=== PATIENT | male | born 1945 | race Caucasian/White ===

== ENCOUNTER 2018-09-15 01:08 | Outpatient (CLI) | payer MEDICARE, SELFPAY ==
[2018-09-15 08:34] LABS: BUN 20 mg/dL (7-18); CREATININE 1.43 mg/dL (0.70-1.30); Calcium 8.9 mg/dL (8.5-10.1); Chloride 103 mmol/L (98-107); Estimated GFR 48.34 (mL/min/1.73m2); Glucose 126 mg/dL (70-100); Potassium 4.7 mmol/L (3.5-5.1); Sodium 141 mmol/L (136-145)
--- NOTE | 2018-09-15 08:39 | DI.US_ITS ---
SYMPTOM/DIAGNOSIS: MILD RENAL INSUFFICIENCY, N28.9 RENAL ULTRASOUND: Routine examination. The right kidney measures 10.4 cm. long. There is mild renal cortical thinning. No solid renal mass is present. There are renal cysts seen. The largest is in the mid pole and measures 3.1 by 2.7 by 3.9 cm. No hydronephrosis or nephrolithiasis is present. There is blood flow seen to the right kidney. The left kidney measures 11.7 cm. long. No renal mass, calculus or obstruction is seen. There is a 1.3 by 1.1 cm. cyst in the left kidney. Normal blood flow is seen to the left kidney. The prevoid urinary bladder volume is 174 cc's. The bladder wall appeared smooth. No intraluminal masses are present. Both ureteral jets were visualized. The post void urinary bladder volume was 13 cc's. Prostatic volume is measured at 40 cc's. IMPRESSION: 1. Mild renal cortical thinning. 2. Bilateral renal cysts.
== END 2018-09-15 01:28 ==
PROVIDERS: PCP Family Medicine; Visit Provider Family Medicine
DX: N28.1 Cyst of kidney, acquired (principal); N28.9 Disorder of kidney and ureter, unspecified
CPT/HCPCS: 36415; 76770; 80048

== ENCOUNTER 2019-09-15 01:41 | Outpatient (CLI) | payer MEDICARE, SELFPAY ==
[2019-09-15 12:56] LABS: Anion Gap 8.5 mmol/L (3-11); BUN 16 mg/dL (7-18); CO2 27.5 mmol/L (21.0-32.0); CREATININE 1.31 mg/dL (0.70-1.30); Calcium 8.6 mg/dL (8.5-10.1); Chloride 102 mmol/L (98-107); Estimated GFR 53.34 (mL/min/1.73m2); Glucose 102 mg/dL (74-106); Sodium 138 mmol/L (136-145)
== END 2019-09-15 02:01 ==
PROVIDERS: PCP Family Medicine; Visit Provider Family Medicine
DX: I10 Essential (primary) hypertension (principal)
CPT/HCPCS: 36415; 80048

== ENCOUNTER 2020-03-16 10:02 | Day surgery (SDC) | payer MEDICARE, SELFPAY ==
[2020-03-16 10:25] VITALS: BP 137/76; PULSE 72; RESP 18; TEMP 37; O2SAT 97
[2020-03-16] MEDS: Tetracaine 0.5% 4 ML BTL OD (11:17)
[2020-03-16] MEDS: Lidocaine 2% Jelly 6 ML SYR (11:18)
[2020-03-16] MEDS: Balanced Salt Soln.-PLUS 500 ML BAG (11:26)
[2020-03-16] MEDS: Trypan Blue 0.06% 0.5 ML SYR (11:29)
[2020-03-16] MEDS: Lidocaine 1% Pres-Free 5 ML VIAL (11:29)
[2020-03-16 11:30] VITALS: BP 111/61; PULSE 78; RESP 16; TEMP 36.4; O2SAT 100
[2020-03-16] MEDS: Moxifloxacin-PF 1 MG/ML VIAL (11:30)
[2020-03-16] MEDS: Povidone-Iodine Ophth 30 ML BTL (11:31)
--- NOTE | 2020-03-16 11:54 | W.PM.DSUDISC ---
Discharge Plan Disposition Patient Disposition: HOME Condition: Good Discharge Details Attending Provider: Jose Reveles Primary Care Provider: Keagan Wilson Home Meds and New Rx's Prescriptions: No Action simvastatin 20 mg tablet 20 mg PO DAILY Qty: 90 RF: 4 aspirin [Adult Aspirin Regimen] 81 mg tablet,delayed release (DR/EC) 81 mg PO DAILY Qty: 90 RF: 4 nitroglycerin 0.4 MG tablet, sublingual 0.4 mg Sublingual PRN PRNQty: 10 RF: 4 hydrochlorothiazide 12.5 mg tablet 12.5 mg PO DAILY Qty: 90 RF: 3 lisinopril 5 mg tablet 5 mg PO DAILY Qty: 90 RF: 3 ibuprofen 200 mg Tablet 400 mg PO PRN PRNRF: 0 Discharge Instructions Stand Alone Forms: Post-op Topical Cataract, Jw Peña (DSU) Discharge Orders Discharge Orders: Discharge Order (Routine); Ordered 03/16/20 Ordered By: Jose Reveles DS: Diagnosis Discharge Diagnosis (1) Cortical cataract of right eye: Status: Resolved (2) Nuclear sclerotic cataract of right eye: Status: Resolved
--- NOTE | 2020-03-16 11:56 | ROE_ITS ---
Date of service: 03/16/20 Time of Service: 11:56 Operative Note Operative Note DATE OF PROCEDURE: 03/16/20 PRE-OP DIAGNOSIS: Nuclear/cortical cataract, right eye POST-OP DIAGNOSIS: same PROCEDURE: Cataract extraction using phacoemulsification with intraocular lens implantation, right eye, using capsular staining with Vision Blue SURGEON: Jose Reveles ANESTHESIA: MAC (with local sub-tenon's anesthetic injection) PATHOLOGY: none sent COMPLICATIONS: None Patient was transported to: same day Patient's condition: stable Implants: Alo and Alo / [employer] Tecnis [id number] Indications: Progressive visual loss due to cataract, right eye Procedure Description: CATARACT SURGERY OPERATIVE REPORT PREOPERATIVE DIAGNOSIS: 1. Nuclear/cortical cataract, right eye 2. Poor red reflex secondary to #1 POSTOPERATIVE DIAGNOSIS: Same OPERATION: 1. Cataract extraction using phacoemulsification with posterior chamber intraocular lens implant, right eye. 2. Capsular staining with Vision Blue IOL: IOL Employee Relations Specialist/Model: Alo & Alo / DANNY Tecnis [id number] IOL Power: + 20.50 diopters IOL Serial Number: [id number] Optic Diameter: 6.0mm Haptic/Overall Diameter: 13.0mm PHACO INFO: Eamon Phytelurion Vision System with OZil and Active Fluidics Cumulative Dispersed Energy (CDE): 19.50 seconds SURGEON: Jose Reveles MD, [place] ANESTHESIA: Monitored Anesthesia Care (MAC), with local sub-tenon's anesthetic infiltration COMPLICATIONS: None SPECIMENS: None INDICATIONS FOR PROCEDURE: The patient is a 74-year-old gentleman with history of diminished visual acuity in his right eye. He is noted to have a dense nuclear cataract with cortical cataract of the right eye. The option of cataract surgery was offered to the patient and he wished to proceed. PROCEDURE: The correct surgical eye was identified and marked as the right eye and the pupil was dilated in the preoperative area using mydriatics and cycloplegics. The dilated pupil size was 5.5 mm. Oral sedation was administered in the form of an Imprimis MKO Melt (midazolam 3mg/ketamine 25mg/ondansetron 2mg). The patient was brought to the operating room where cardiopulmonary monitoring was instituted and surgical time-out was performed, confirming the correct operative eye and IOL power. Topical anesthesia was administered and ophthalmic povidone-iodine 5% was instilled into the conjunctival fornices. Lidocaine gel was applied to the cornea and the brigid-ocular area was prepped with Betadine 10% solution and draped in the usual sterile fashion for intraocular surgery, including an aperture drape. A Tegaderm transparent film dressing was cut in half and used to cover the lashes and lid margins. Care was taken to sequester the lashes and lid margins under the Tegaderm dressing. A lid speculum was placed between the lids of the operative eye and the [place] operating microscope was maneuvered into position. Callie scissors were then used to make a conjunctival buttonhole approximately 6mm posterior to the limbus in the inferonasal quadrant. Blunt dissection was carried out to expose bare sclera, and a blunt-tipped sub-tenon?s anesthesia cannula was introduced and passed posteriorly along the globe where non- preserved plain lidocaine was injected into posterior sub-Tenon?s space. A sideport knife was used to make a paracentesis port inferotemporally. Intraocular phenylephrine/lidocaine was injected into the anterior chamber. Air was injected into the anterior chamber, followed by Vision Blue, which was painted over the anterior capsule and then irrigated out with BSS. The anterior chamber was filled with Healon Pro. A 2.4mm keratome knife was used to create a half-thickness groove at the limbus and then to construct a three-plane near- clear corneal tunnel extending 2.0mm into clear cornea at the 10:00 position. A flap was raised on the anterior capsule and capsulorhexis forceps were used to complete a continuous curvilinear capsulorhexis of 5.0 mm. Balanced salt solution was then used to perform cortical cleaving hydrodissection and nuclear hydrodelineation until the lens could be freely rotated within the capsular bag. The lens nucleus was then disassembled and removed within the capsular bag and iris plane using phacoemulsification. Residual cortical material was removed using the I/A handpiece. The posterior capsule was carefully polished to remove as much residual lens epithelial cells as safely possible. The capsular bag was then inflated and the anterior chamber deepened with viscoelastic. The lens implant described above was inserted into the capsular bag using the DANNY [place] Injector. A Kuglen hook was used to dial the IOL into position. Residual viscoelastic was then removed first from posterior to the IOL, then from the anterior chamber using the I/A handpiece. The lens implant was noted to center nicely within the capsular bag. The incisions were stromally hydrated, and the anterior chamber was reformed using BSS. Then 0.5cc of moxifloxacin 1.0mg/ml were injected into the capsular bag and anterior chamber. The incisions were checked with a Weck spear and found to be secure. Several drops of ophthalmic povidone-iodine 5% were then applied to the eye followed by two drops of Imprimis combination prednisolone/moxifloxacin/nepafenac solution. The drapes were removed and a clear plastic protective eye shield was placed over the eye. The patient was then returned to Same Day Surgery in stable condition.
== END 2020-03-16 12:13 | disposition home or self-care (01) ==
PROVIDERS: PCP Family Medicine; Visit Provider Ophthalmology
PROC: (CPT 66982; principal; 2020-03-16 11:45)
DX: H25.011 Cortical age-related cataract, right eye (principal); H25.11 Age-related nuclear cataract, right eye; H35.89 Other specified retinal disorders
CPT/HCPCS: 66982; V2632

== ENCOUNTER 2020-03-30 08:21 | Day surgery (SDC) | payer MEDICARE, SELFPAY ==
[2020-03-30 08:41] VITALS: BP 147/77; PULSE 74; RESP 16; TEMP 36.5; O2SAT 97
[2020-03-30] MEDS: Balanced Salt Soln.-PLUS 500 ML BAG (10:02)
[2020-03-30] MEDS: Trypan Blue 0.06% 0.5 ML SYR (10:03)
[2020-03-30] MEDS: Lidocaine 1% Pres-Free 5 ML VIAL (10:03)
[2020-03-30] MEDS: Tetracaine 0.5% 4 ML BTL OS (10:03)
[2020-03-30] MEDS: Lidocaine 2% Jelly 6 ML SYR (10:04)
[2020-03-30] MEDS: Povidone-Iodine Ophth 30 ML BTL ×2 (10:04→10:22)
[2020-03-30] MEDS: Moxifloxacin-PF 1 MG/ML VIAL (10:13)
--- NOTE | 2020-03-30 10:33 | W.PM.DSUDISC ---
Discharge Plan Discharge Details Attending Provider: Jose Reveles Primary Care Provider: Keagan Wilson Home Meds and New Rx's Prescriptions: No Action simvastatin 20 mg tablet 20 mg PO DAILY Qty: 90 RF: 4 aspirin [Adult Aspirin Regimen] 81 mg tablet,delayed release (DR/EC) 81 mg PO DAILY Qty: 90 RF: 4 nitroglycerin 0.4 MG tablet, sublingual 0.4 mg Sublingual PRN PRNQty: 10 RF: 4 hydrochlorothiazide 12.5 mg tablet 12.5 mg PO DAILY Qty: 90 RF: 3 lisinopril 5 mg tablet 5 mg PO DAILY Qty: 90 RF: 3 ibuprofen 200 mg Tablet 400 mg PO PRN PRNRF: 0 Discharge Instructions Stand Alone Forms: Post-op Topical CataractJw (DSU) DS: Diagnosis Discharge Diagnosis (1) Cortical cataract of left eye: Status: Resolved (2) Nuclear sclerotic cataract of left eye: Status: Suspected
--- NOTE | 2020-03-30 10:34 | ROE_ITS ---
Date of service: 03/30/20 Time of Service: 10:34 Operative Note Operative Note DATE OF PROCEDURE: 03/30/20 POST-OP DIAGNOSIS: same PROCEDURE: Cataract extraction using phacoemulsification with intraocular lens implant, left eye, using capsular staining with Vision Blue SURGEON: Jose Reveles ANESTHESIA: MAC (with local sub-tenon's anesthetic injection) COMPLICATIONS: None Patient was transported to: same day Patient's condition: stable Implants: Alo and Alo / [employer] Tecnis [id number] Indications: Progressive decreased vision due to cataract, left eye, with poor red reflex Procedure Description: CATARACT SURGERY OPERATIVE REPORT PREOPERATIVE DIAGNOSIS: 1. Dense nuclear/cortical cataract, left eye 2. Poor red reflex secondary to #1 POSTOPERATIVE DIAGNOSIS: Same OPERATION: 1. Cataract extraction using phacoemulsification with posterior chamber intraocular lens implant, left eye. 2. Capsular staining with Vision Blue IOL: IOL [employer] Core Feeder/Model: Alo & Alo / DANNY Tecnis [id number] IOL Power: + 19.50 diopters IOL Serial Number: [id number] Optic Diameter: 6.0 mm Haptic/Overall Diameter: 13.0 mm PHACO INFO: Eamon [employer] Vision System with OZil and Active Fluidics Cumulative Dispersed Energy (CDE): 21.33 seconds SURGEON: Jose Reveles MD, [place] ANESTHESIA: [facility] ([facility]), with local sub-tenon's anesthetic infiltration COMPLICATIONS: None SPECIMENS: None INDICATIONS FOR PROCEDURE: Patient is a 74-year-old gentleman with history of diminished visual acuity in both eyes secondary to the development of dense bilateral nuclear and cortical cataract. He has already undergone cataract surgery in his right eye and is doing well postoperatively. He now presents for cataract surgery in the left eye. PROCEDURE: The correct surgical eye was identified and marked as the left eye and the pupil was dilated in the preoperative area using mydriatics and cycloplegics. The dilated pupil size was 6.5 mm. Oral sedation was administered in the form of an Imprimis MKO Melt (midazolam 3mg/ketamine 25mg/ondansetron 2mg). The patient was brought to the operating room where cardiopulmonary monitoring was instituted and surgical time-out was performed, confirming the correct operative eye and IOL power. Topical anesthesia was administered and ophthalmic povidone-iodine 5% was instilled into the conjunctival fornices. Lidocaine gel was applied to the cornea and the brigid-ocular area was prepped with Betadine 10% solution and draped in the usual sterile fashion for intraocular surgery, including an aperture drape. A Tegaderm transparent film dressing was cut in half and used to cover the lashes and lid margins. Care was taken to sequester the lashes and lid margins under the Tegaderm dressing. A lid speculum was placed between the lids of the operative eye and the [place] operating microscope was man euvered into position. Callie scissors were then used to make a conjunctival buttonhole approximately 6mm posterior to the limbus in the inferonasal quadrant. Blunt dissection was carried out to expose bare sclera, and a blunt-tipped sub-tenon?s anesthesia cannula was introduced and passed posteriorly along the globe where non- preserved plain lidocaine was injected into posterior sub-Tenon?s space. A sideport knife was used to make a paracentesis port superiorly/superiortemporally. Intraocular phenylephrine/lidocaine was injected int the anterior chamber.. Air was then injected into the anterior chamber, followed by Vision Blue, which was painted over the anterior capsule and then irrigated out using BSS. The anterior chamber was filled with Healon Pro. A 2.4mm keratome knife was used to create a half-thickness groove at the limbus and then to construct a three-plane near-clear corneal tunnel extending 2.0mm into clear cornea at the 3:00 position. A flap was raised on the anterior capsule and capsulorhexis forceps were used to complete a continuous curvilinear capsulorhexis of 5.0 mm. Balanced salt solution was then used to perform cortical cleaving hydrodissection and nuclear hydrodelineation until the lens could be freely rotated within the capsular bag. The lens nucleus was then disassembled and removed within the capsular bag and iris plane using phacoemulsification. Residual cortical material was removed using the 45-degree angled silicone I/A tip with 0.3mm port. The posterior capsule was carefully polished to remove as much residual lens epithelial cells as safely possible. The capsular bag was then inflated and the anterior chamber deepened with viscoelastic. The lens implant described above was inserted into the capsular bag using the DANNY [place] Injector. A Kuglen hook was used to dial the IOL into position. Residual viscoelastic was then removed first from posterior to the IOL, then from the anterior chamber using the I/A handpiece. The lens implant was noted to center nicely within the capsular bag. The incisions were stromally hydrated, and the anterior chamber was reformed using BSS. Then 0.4cc of moxifloxacin 1.5mg/ml were injected into the capsular bag and anterior chamber. The incisions were checked with a Weck spear and found to be secure. Several drops of ophthalmic povidone-iodine 5% were then applied to the eye followed by two drops of Imprimis combination prednisolone/moxifloxacin/nepafenac solution. The drapes were removed and a clear plastic protective eye shield was placed over the eye. The patient was then returned to Same Day Surgery in stable condition.
== END 2020-03-30 10:50 | disposition home or self-care (01) ==
LOC: SUR 08:22
PROVIDERS: PCP Family Medicine; Visit Provider Ophthalmology
PROC: (CPT 66982; principal; 2020-03-30 10:30)
DX: H25.12 Age-related nuclear cataract, left eye (principal); H35.89 Other specified retinal disorders; Z98.41 Cataract extraction status, right eye; Z96.1 Presence of intraocular lens; G47.33 Obstructive sleep apnea (adult) (pediatric); I10 Essential (primary) hypertension
CPT/HCPCS: 66982; V2632

== ENCOUNTER 2020-07-05 05:34 | Outpatient (CLI) | payer MEDICARE, OTHER, SELFPAY ==
[2020-07-05 13:34] LABS: Anion Gap 6.2 mmol/L (3-11); BUN 18 mg/dL (7-18); CO2 29.8 mmol/L (21.0-32.0); CREATININE 1.25 mg/dL (0.70-1.30); Calcium 8.9 mg/dL (8.5-10.1); Calculated LDL 40 mg/dL (<100); Chloride 105 mmol/L (98-107); Cholesterol 100 mg/dL (<200); Estimated GFR 56.16 (mL/min/1.73m2); Glucose 96 mg/dL (74-106); HDL Cholesterol 51 mg/dL (40-60); Potassium 3.9 mmol/L (3.5-5.1); Sodium 141 mmol/L (136-145); Triglyceride 47 mg/dL (<150)
== END 2020-07-05 05:54 ==
PROVIDERS: PCP Family Medicine; Visit Provider Family Medicine
DX: I10 Essential (primary) hypertension (principal)
CPT/HCPCS: 36415; 80048; 80061

== ENCOUNTER 2021-03-19 18:19 | Outpatient (REF) | payer MEDICARE, OTHER, SELFPAY ==
[2021-03-20 11:36] LABS: Lyme Ab w Rflx to Lyme Confirm Negative (Negative)
[2021-03-22 13:34] LABS: Anaplasma phagocytophilum Negative (Negative); B. miyamotoi PCR Negative (Negative); Babesia divergens/MO-1 Negative (Negative); Babesia duncani Negative (Negative); Babesia microti Negative (Negative); Ehrlichia chaffeensis Negative (Negative); Ehrlichia ewingii/canis Negative (Negative); Ehrlichia muris eauclairensis Negative (Negative)
== END 2021-03-19 18:20 | disposition home or self-care (01) ==
LOC: LBN 18:19
PROVIDERS: PCP Family Medicine; Visit Provider Physician Assistant
DX: W57.XXXA Bitten or stung by nonvenomous insect and other nonvenomous arthropods, initial encounter (principal); T14.8XXA Other injury of unspecified body region, initial encounter
CPT/HCPCS: 87798; 86618

== ENCOUNTER 2021-07-03 09:41 | Outpatient (CLI) | payer MEDICARE, OTHER, SELFPAY ==
[2021-07-03 13:03] LABS: ALT 18 U/L (16-63); AST 16 U/L (15-37); Albumin 4.1 g/dL (3.4-5.0); Alkaline Phosphatase 74 U/L (46-116); Anion Gap 8.2 mmol/L (3-11); BUN 20 mg/dL (7-18); Bilirubin, Total 0.6 mg/dL (0.2-1.0); CO2 28.8 mmol/L (21.0-32.0); CREATININE 1.3 mg/dL (0.70-1.30); Calcium 8.8 mg/dL (8.5-10.1); Calculated LDL 44 mg/dL (<100); Chloride 104 mmol/L (98-107); Cholesterol 104 mg/dL (<200); Estimated GFR 53.53 (mL/min/1.73m2); Glucose 105 mg/dL (74-106); HDL Cholesterol 47 mg/dL (40-60); Potassium 4.4 mmol/L (3.5-5.1); Sodium 141 mmol/L (136-145); Total Protein 7.2 g/dL (6.4-8.2); Triglyceride 67 mg/dL (<150)
== END 2021-07-03 09:42 | disposition home or self-care (01) ==
LOC: LOS 09:42
PROVIDERS: PCP Nurse Practitioner Family; Visit Provider Nurse Practitioner Family
DX: I10 Essential (primary) hypertension (principal); N28.9 Disorder of kidney and ureter, unspecified; R31.9 Hematuria, unspecified; Z12.5 Encounter for screening for malignant neoplasm of prostate
CPT/HCPCS: 36415; 80053; 80061; 84153

== ENCOUNTER → 2022-04-03 09:05 | Outpatient (BNVA) | payer MEDICARE, OTHER, SELFPAY | PROVIDERS: PCP Nurse Practitioner Family; Referring Provider Nurse Practitioner Family; Visit Provider Surgery | DX: R63.4 Abnormal weight loss (principal); R19.7 Diarrhea, unspecified | CPT/HCPCS: 99203 ==

== ENCOUNTER 2022-04-03 09:58 | Outpatient (REF) | payer MEDICARE, OTHER, SELFPAY ==
[2022-04-03 23:47] LABS: Campylobacter PCR Negative (Negative); Salmonella PCR Negative (Negative); Shiga Toxin PCR Negative (Negative); Shigella/Enteroinvasive Ecoli Negative (Negative)
== END 2022-04-03 09:59 | disposition home or self-care (01) ==
LOC: LBN 09:58
PROVIDERS: PCP Nurse Practitioner Family; Visit Provider Nurse Practitioner Family
DX: R19.7 Diarrhea, unspecified (principal)
CPT/HCPCS: 87505

== ENCOUNTER 2022-04-08 08:58 | Day surgery (SDC) | payer MEDICARE, OTHER, SELFPAY ==
--- NOTE | 2022-04-07 16:47 | PDOC.DSDIS_ITS ---
Discharge Plan Disposition Patient Disposition: HOME Condition: Good Discharge Details Reason For Visit: colon scope Attending Provider: Mary Anne Hernandez Primary Care Provider: Mark Amato Home Meds and New Rx's Prescriptions: New vancomycin [Vancocin] 125 mg capsule 125 mg PO QID 10 Days Qty: 40 0RF Continued diphenoxylate-atropine [Lomotil] 2.5-0.025 mg tablet 1 tab PO BID PRN (Reason: diarrhea) Qty: 30 0RF nitroglycerin 0.4 MG tablet, sublingual 0.4 mg Sublingual PRN PRNQty: 10 simvastatin 20 mg tablet 20 mg PO HS lisinopril 5 mg tablet 5 mg PO HS hydrochlorothiazide 12.5 mg tablet 12.5 mg PO HS Discontinued aspirin [Adult Aspirin Regimen] 81 mg tablet,delayed release (DR/EC) 81 mg PO DAILY Qty: 90 4RF Rx Instructions: Takes OTC ibuprofen 200 mg Tablet 400 mg PO PRN PRN Discharge Instructions Additional Instructions: DSU Colonoscopy Post- Op Instructions Instructions for Everyone who is given Anesthesia: For your safety, please do the following for the next twenty-four (24) hours: *Do Not operate a motor vehicle (car, truck, motorcycle, etc.) *Do Not drink alcoholic beverages or use any recreational drugs for the first 24 hours or while taking pain medications. The medications in your body may have a reaction that can be dangerous. *Do Not make any important decisions or sign any important papers. Findings: polyps diverticula C. diff + Follow up: -April 17 2:30pm -Continue aspirin/ibuprofen (aleve/Motrin/Naprosyn,etc) 1. No lifting over 20 pounds or strenuous activity for the first 24 hours after your procedure. After 24 hours there are no restrictions on your activity but you may feel fatigued for a few days. 2. After you arrive home you may have a light meal and return to your normal diet as you can tolerate it without feeling sick to your stomach. 3. You may have a bloated, gaseous feeling in your belly (abdomen) after a colonoscopy. Passing gas and belching will help. Walking or lying down on your left side with your knees flexed may relieve the discomfort. Call the office at [phone] (Office) or [phone] (Hospital) right away if you notice any of the following: a.Vomiting of blood or ?coffee ground stools?. b.Rectal bleeding 1Tbsp, blood clots or continuous bleeding. c.Severe belly (abdominal) pain. d.A hard distended belly (abdomen) and an inability to pass gas. 4. Please don?t expect to have a normal BM (bowel movement) for 2-3 days after your procedure. 5. If there are questions regarding the findings of your procedure, please contact your doctor 6. If you are unable to contact your doctor with a problem, contact the hospital at [phone]. 7. Continue all your regular medications unless directed otherwise. I understand the above instructions and have no questions. Signature of Patient or Adult Escort Name of Responsible Adult Escort Signature of Nurse Date/Time Activity:: see above Diet:: see above Discharge Orders Discharge Orders: Discharge Order (Routine); Ordered 04/07/22 Ordered By: Mary Anne Hernandez DS: Diagnosis Discharge Diagnosis (1) Colitis due to Clostridium difficile: Status: Acute (2) Adenomatous colon polyp: Status: Acute (3) Diverticula of colon: Status: Acute
--- NOTE | 2022-04-08 | DI.CT_ITS ---
Exam(s) CT ABDOMEN PELVIS CTA EXAM: CT ABDOMEN PELVIS CTA CLINICAL HISTORY: ischemic colitis. TECHNIQUE: Imaging Protocol: Axial computed tomography images with coronal and sagittal reformatted images were created and reviewed CONTRAST MATERIAL: Intravenous: Omnipaque 350 Contrast volume:100 ml Oral: None COMPARISON: No exams were available for comparison FINDINGS: VISUALIZED LUNG BASES: There is a calcified nodule pleural based in the lingular segment left lung. Also increased markings in the inferior lingular segment, lateral basal segment of the left lower lob e and posterior basal segment right lower lobe. No associated pleural effusions.. CARDIAC: Partially included heart exhibits normal size. There is no pericardial effusion. No shift of the interventricular septum evident. ABDOMINAL AORTA: There is no evidence of abdominal aortic aneurysm. Maximum diameter of the abdomina l aorta is 2.4 cm and the abdominal aorta tapers normally. The celiac artery is patent without ostia l stenosis. No aneurysm is celiac artery. The superior mesenteric artery is also patent without sig nificant stenosis at its origin nor intraluminal filling defects. The inferior mesenteric artery is patent. Both renal arteries are patent without significant ostial stenosis nor stenosis more distall y nor evidence of fibromuscular dysplasia. There is no significant stenosis at the aortic bifurcatio n. No significant narrowing nor aneurysms of the common iliac arteries nor the junction of the commo n and external iliac arteries. Both external iliac arteries exhibit normal diameters as do the commo n femoral arteries. Both internal iliac arteries are patent without significant stenosis nor aneurys ms. There is no ascites. LIVER: There are no focal hepatic lesions nor dilatation of intrahepatic ducts. GALLBLADDER/BILIARY: No obvious gallbladder pathology. CBD is not dilated. PANCREAS: No evidence of pancreatic mass nor dilatation of the pancreatic duct. SPLEEN: Spleen is not enlarged. There are no intrasplenic lesions. A few splenic calcified granuloma s are noted. ADRENALS: There are no significant adrenal masses. KIDNEYS: There are cysts in both kidneys. The largest is exophytic off the posterior aspect of the r ight kidney and measures 6.4 cm wide by 2.9 cm AP. There is immediately subjacent 2 cm cyst in the c ortex of the right kidney as well as parapelvic cysts. Largest cyst in the opposite-left kidney tonja ures 1.6 x 1.5 cm. No solid lesions in either kidney. No calculi. No hydronephrosis nor hydrourete r.. LYMPH NODES: There is no retroperitoneal nor para-aortic adenopathy. No obvious mesenteric masses. ABDOMINAL WALL: No evidence of significant anterior abdominal wall hernia. GI: Colon is filled with air and mildly distended, measuring 6 cm. There is a clip device evident in the inferior wall of the distal half of the transverse colon. Probably related to colonoscopy biops y and this would also explain the amount of air in the colon. There is also some mesenteric streakin g adjacent to this posterior wall. No abnormal fluid collection. PELVIS: LYMPH NODES: There is no intrapelvic nor inguinal adenopathy. GI: No evidence of appendicitis.No evidence of sigmoid diverticulitis. URINARY BLADDER: Slight uniform thickening of the bladder wall noted. No diverticuli. REPRODUCTIVE: Prostate gland slightly enlarged. Seminal vesicles unremarkable. OSSEOUS: No significant osseous lesions. No fractures. Multilevel chronic degenerative disc disease in the lumbar spine noted. IMPRESSION: 1. There is air seen throughout the colon and the colon is mildly distended.. There is a metallic de nsity device on the posterior wall of the colon at the transverse colon level which is most probably related to biopsy. Some streaking is noted in the mesentery around this area. However, there is no evidence of abscess in this region. No large hematoma. There is, however, 1 small nearby focus of w hat appears to be extra luminal air at this level, best seen on transverse images (series 4/images 16 -17). 2. Abdominal aorta and aortoiliac segments are intact. No aneurysms. No significant stenosis. Main branch vessels are patent. There are no ischemic appearing bowel loops. No ascites. 3. Bilateral renal cysts, larger on the right side, as described individually above. No solid renal masses. No calculi. No hydronephrosis 4. There mild infiltrates in both lower lobes as well as in the lingular segment of the left lung. P artially calcified subpleural nodule noted in the lingular segment of the left lung, this nodule tonja uring 1.4 x 1.2 cm. RADIATION DOSE DELIVERED: 942.81mGy.cm Total DLP DATA REPOSITORY: All CT scans at this facility are submitted to the National Radiology Data Registry (NRDR) Dose Index Registry (DIR) with the [employer] (ACR). RADIATION OPTIMIZATION: All CT scans at this facility use at least one of these dose optimization te chniques: automated exposure control; mA and/or kV adjustment per patient size (includes targeted exa ms where dose is matched to clinical indication); or iterative reconstruction.
[2022-04-08 09:20] VITALS: BP 121/85; PULSE 90; RESP 19; TEMP 36.8; O2SAT 96
[2022-04-08] MEDS: Lactated Ringers 1,000 ML 80 ML IV (10:07)
--- NOTE | 2022-04-08 10:50 | W.ANESPOSTOP ---
Postoperative Evaluation Date, Time and Location Date Performed: 04/08/22 Time Performed: 10:51 Patient Location: Day Surgery Unit Vital Signs Most Recent Imported Vital Signs: Most Recent Vital Signs Temp Pulse Resp BP Pulse Ox 36.8 C 90 19 121/85 96 04/08/22 09:20 04/08/22 09:20 04/08/22 09:20 04/08/22 09:20 04/08/22 09:20 Most Recent Manually Entered Vital Signs: Adult Blood Pressure: 118/75 Heart Rate: 66 Respirations: 12 Oxygen Saturation (%): 98 Temperature (C): 36.4 C Pain Score (0-10 Scale): 0 Pain Score Most Recent Pain Score: Most Recent Pain Score Pain Level 0 04/08/22 09:20 Assessment Mental Status: Awake (Alert & Oriented to Patient Baseline) Airway and Respiratory Function: Patent airway with normal (patient baseline) respiratory exam Cardiovascular Function: Hemodynamically Stable Hydration Status: Adequately Hydrated Nausea & Vomiting: No Nausea or Vomiting Pain: Pt. Denies Any Pain Peripheral Nerve Block: Patient did not receive a nerve block
[2022-04-08 10:52] VITALS: BP 118/75; PULSE 66; RESP 12; TEMPC 36.4; O2SAT 98
--- NOTE | 2022-04-08 10:54 | W.ANESPRE ---
General Info Date of Service Date Performed: 04/08/22 Height: 5 ft 11 in Weight: 106.9 kg Body Mass Index (BMI): 32.8 Surgical Procedure: Operation Date: 04/08/22 11:20 Proposed Procedure Side Surgeon p Colonoscopy Mary Anne Hernandez, DO Actual Procedure Side Surgeon p Colonoscopy Mary Anne Hernandez, DO Meds Allergies and Home Medications Allergies Allergy/AdvReac Type Severity Reaction Status Date / Time No Known Allergies Allergy Verified 04/08/22 09:32 Home Medication Medication Instructions Recorded nitroglycerin 0.4 mg sublingual 0.4 mg sublingual PRN PRN ##10 02/17/17 tablet aspirin 81 mg tablet,delayed 81 mg PO DAILY #90 tabs 09/13/19 release (Adult Aspirin Regimen) ibuprofen 200 mg tablet 400 mg PO PRN PRN 03/14/20 diphenoxylate-atropine 2.5 1 tab PO BID PRN diarrhea #30 tabs 04/02/22 mg-0.025 mg tablet (Lomotil) hydrochlorothiazide 12.5 mg tablet 12.5 mg PO HS 04/04/22 lisinopril 5 mg tablet 5 mg PO HS 04/04/22 simvastatin 20 mg tablet 20 mg PO HS 04/04/22 Current Visit Medications: Current Medications Generic Name Dose Route Start Last Admin Trade Name Freq PRN Reason Stop Dose Admin Hyoscyamine Sulfate 0.125 mg 04/07/22 16:38 Hyoscyamine 0.125 Mg Sl/Oral/Chew SL DIRECTED PRN Ringer's Solution 1,000 mls @ 80 mls/hr 04/08/22 06:00 04/08/22 10:07 IV 05/04/22 23:59 80 mls/hr INFUSION SHADY Administration IV Miscellaneous Supplies 1 each 04/08/22 06:00 Iv Access IV 05/04/22 23:59 DIRECTED SHADY Ondansetron HCl 4 mg 04/07/22 16:38 Ondansetron 4 Mg/2 Ml Vial IVP Q4H PRN PRN Nausea / Vomiting Sodium Chloride 0 ml 04/08/22 06:00 Normal Saline Flush 10 Ml Syr IV 05/04/22 23:59 PRN PRN Sodium Chloride 0 ml 04/08/22 06:00 Normal Saline 10 Ml Vial IJ 05/04/22 23:59 DIRECTED PRN Sterile Water 0 ml 04/08/22 06:00 Water,Injection,Sterile 10 Ml Vial IJ 05/04/22 23:59 DIRECTED PRN PFSH Active Problems Active Problems: Problem Status Onset Code Obstructive sleep apnea syndrome 01/22/10 G47.33 Smoker F17.200 Chronic idiopathic constipation K59.04 Renal insufficiency N28.9 Diarrhea R19.7 Medical History Medical History Essential hypertension (10/04/13) Hematuria, unspecified Myocardial infarction (01/22/10) 2010-Pt. state he was discharged from their care after f/u with cardiology Salivary duct stone (02/07/16) Sleep apnea cpap Stasis dermatitis of both legs (08/21/16) Surgical History Surgical History (Updated 04/08/22 @ 09:32 by Yolanda Beaver, RN) Hx of cataract surgery Tobacco Smoking/Tobacco Use Status: Current-Occasional Tobacco Type: cigarettes Passive smoking exposure: Yes Second hand exposure: Yes Alcohol Alcohol Intake: never Substance Use Substance use: Never Substance use type: does not use Vital Signs and Lab Results Vital Signs Most Recent Vital Signs in EMR: Most Recent Vital Signs Temp Pulse Resp BP Pulse Ox 36.8 C 90 19 121/85 96 04/08/22 09:20 04/08/22 09:20 04/08/22 09:20 04/08/22 09:20 04/08/22 09:20 Lab Results Blood Type / Crossmatch: No Data to Display Complete Blood Count: No Data to Display Complete Metabolic Panel: No Data to Display Liver Function Panel: No Data to Display Coagulation Panel: No Data to Display Cardiac Panel: No Data to Display Arterial Blood Gas: No Data to Display Venous Blood Gas: No Data to Display Pancreas Panel: No Data to Display Thyroid Panel: No Data to Display Infectious Disease: No Data to Display Blood Cultures: No Data to Display Toxicology Panel: No Data to Display Anesthesia Assessment and Plan Anesthesia History Personal History: No History of General Anesthesia Family History: No Family History of Anesthesia Complications Exercise Tolerance Exercise Tolerance: Metabolic Equivalents>4 Pertinent Negatives Pertinent Negatives: No Symptoms of GERD, No Major Cardiovascular Symptoms or Complaints (2009 NE minor), No Major Pulmonary Symptoms or Complaints (NARINDER uses CPAP everynight) and No History of CVA/TIA Cardiac & Pulmonary Exam Cardiac Exam: Normal S1/S2 Heart Sounds Pulmonary Exam: Clear Bilateral Breath Sounds Implantable Cardiac Device Does patient have a Pacemaker or an ICD?: No Airway Exam Known Difficult Airway: No Mallampati Class: 2 Mouth Opening: Normal (> 3cm) Thyromental Distance: Greater than 3 cm Neck Range of Motion: Full ROM Neck Circumference: Normal Teeth Condition: Removable Dentures/Plates Upper ASA Classification ASA Score: ASA 2 Emergency Case?: No NPO Status NPO Status: NPO Clears >2 hours, Solids >8 hours Anesthesia Plan Resuscitation Status: Full Code Anesthesia Technique: General Anesthesia Airway Planned: Natural Airway Monitors Used: Standard Monitors
[2022-04-08 10:58] VITALS: BMI 32.8
--- NOTE | 2022-04-08 11:29 | BOWEL_PTH ---
PATIENT: Nirav Owens LOC: [facility] U#:[id number] AGE/SX: 76/M ROOM: RE04/08/[address]: Mary Anne Hernandez : 1945 BED: DIS: 04/08/2022 SPEC #: [id number] RECD: 04/08/22 14:44 STATUS: CATHY RE #: [id number] HUBER: 04/08/22 11:[address]: Mary Anne Hernandez DEPT: Surgical Specimen RECD BY: Stephanie Giraldo ENTERED: 04/08/22 14:55 SP TYPE: Bowel OTHR DR: Mark Amato, [employer]ES AND SERVICE REPRESENTATIVE Tissues: 1 - BIOPSY BOWEL 2 - BIOPSY BOWEL 3 - BIOPSY BOWEL 4 - BIOPSY BOWEL 5 - BIOPSY BOWEL 6 - BIOPSY BOWEL 7 - BIOPSY BOWEL 8 - BIOPSY BOWEL 9 - BIOPSY BOWEL Procedures: GROSS AND MICRO LEVEL 4 Comments: [id number]
[2022-04-08] MEDS: Normal Saline Flush 10 ML SYR (11:45)
[2022-04-08] MEDS: Endoscopic Tattoo 5 ML SYR IJ (11:45)
--- NOTE | 2022-04-08 12:34 | W.ANESPOSTOP ---
Postoperative Evaluation Date, Time and Location Date Performed: 04/08/22 Time Performed: 12:34 Patient Location: Day Surgery Unit Vital Signs Most Recent Imported Vital Signs: Most Recent Vital Signs Temp Pulse Resp BP Pulse Ox 36.8 C 90 19 121/85 96 04/08/22 09:20 04/08/22 09:20 04/08/22 09:20 04/08/22 09:20 04/08/22 09:20 Most Recent Vital Signs Temp Pulse Resp BP Pulse Ox 36.8 C 90 19 121/85 96 04/08/22 09:20 04/08/22 09:20 04/08/22 09:20 04/08/22 09:20 04/08/22 09:20 Most Recent Manually Entered Vital Signs: Adult Blood Pressure: 118/68 Heart Rate: 67 Respirations: 12 Oxygen Saturation (%): 98 Temperature (C): 36.3 C Pain Score (0-10 Scale): 0 Pain Score Most Recent Pain Score: Most Recent Pain Score Pain Level 0 04/08/22 09:20 Assessment Mental Status: Awake (Alert & Oriented to Patient Baseline) Airway and Respiratory Function: Patent airway with normal (patient baseline) respiratory exam Cardiovascular Function: Hemodynamically Stable Hydration Status: Adequately Hydrated Nausea & Vomiting: No Nausea or Vomiting Pain: Pt. Denies Any Pain Peripheral Nerve Block: Patient did not receive a nerve block
[2022-04-08 12:35] VITALS: BP 118/68; PULSE 67; RESP 12; TEMPC 36.3; O2SAT 98
[2022-04-08 12:44] VITALS: BP 118/68; PULSE 67; RESP 18; TEMP 36.4; O2SAT 98
[2022-04-08 13:20] VITALS: BP 128/64; PULSE 67; RESP 16; TEMP 36.8; O2SAT 99
--- NOTE | 2022-04-08 14:02 | W.COLOREPORT ---
Colonoscopy Report Date of procedure: 04/08/22 Pre-op diagnosis general: diarrhea Post-op diagnosis procedure note: other (colitis/diverticula/polyps) Surgeon: Mary Anne Hernandez Anesthesia Type: General:No Airway Estimated blood loss (mL): 2 Pathology: none sent Complications: None Disposition: same day Prep: Miralax/Dulcolax Procedure Description: After informed consent was obtained the patient was taken to the procedure room and placed in a left decubitous position. Monitors were applied and a time out was done. The patients name, date of , procedure, allergies to medications and metal in their body was reviewed. The patient was then sedated. Once sedated and comfortable a rectal exam was done. External exam: the anus is very patulent w/ poor tone. Internal exam revealed poor sphincter tone and no palpable masses. The scope was then introduced and retrofelexed. No internal hemorrhoids were identified. The scope was then advanced to the cecum w/ mild difficulty. The colon is tortuous and has poor tone. The TI and appendiceal orifice were identified. The prep was BBPS I in all segments for a total of III. The scope was then slowly retracted over 40 minutes back into the rectum. It was irrigated with 3 L of saline. He has mild diverticula in the sigmoid colon. He has a point .7 5 cm flat polyp in the cecum. This is removed with cold forceps. Biopsies is taken of the cecum. He at 70 cm he has a flat 2 cm polyp. This is tattooed and elevated with the tattoo ink. It is removed with a hot snare. 2 endoclips were used to close the defect. There is no bleeding noted. At 40 cm he has a 1 cm pedunculated polyp. This is removed with a cold snare. Biopsies are taken at 50 cm, 30 cm and 20 cm and in the rectum. He also has a small flat 5 mm polyp at 30 cm that is with removed with a cold biopsy forcep. From the splenic flexure to the rectum, the mucosa is erythematous and edematous. There is a mucopurulent discharge throughout the entirety of the colon in this area. This does appear to be mild colitis. It does not have the longstanding low of chronic Crohn's disease with pseudopolyposis and cobblestoning. It does not have the pseudomembranes that are traditionally seen in C. difficile. He does have risk factors for ischemic colitis. And he is on daily aspirin therapy and ibuprofen, so he could also have collagenous colitis. Stool was sent for C. difficile as well. All biopsies and specimens are retrieved and no bleeding is noted. The scope was removed and the patient was woken up and taken back to Same day surgery in stable condition. The patient tolerated the procedure well and there were no immediate complications. Follow up: Repeat colonoscopy pending pathology, unless they develop changes in bowel habits or other new gastrointestinal complaints.
[2022-04-08 14:06] LABS: C Diff PCR Positive (Negative)
[2022-04-08] MEDS: Omnipaque 350 MG/ML 100 ML BTL IJ (14:11)
--- NOTE | 2022-04-08 14:27 | PDOC.DSDIS_ITS ---
Discharge Plan Disposition Patient Disposition: HOME Condition: Good Discharge Details Reason For Visit: colon scope Attending Provider: Mary Anne Hernandez Primary Care Provider: Mark Amato Home Meds and New Rx's Prescriptions: New vancomycin [Vancocin] 125 mg capsule 125 mg PO QID 10 Days Qty: 40 0RF Continued diphenoxylate-atropine [Lomotil] 2.5-0.025 mg tablet 1 tab PO BID PRN (Reason: diarrhea) Qty: 30 0RF nitroglycerin 0.4 MG tablet, sublingual 0.4 mg Sublingual PRN PRNQty: 10 simvastatin 20 mg tablet 20 mg PO HS lisinopril 5 mg tablet 5 mg PO HS hydrochlorothiazide 12.5 mg tablet 12.5 mg PO HS Discontinued aspirin [Adult Aspirin Regimen] 81 mg tablet,delayed release (DR/EC) 81 mg PO DAILY Qty: 90 4RF Rx Instructions: Takes OTC ibuprofen 200 mg Tablet 400 mg PO PRN PRN Discharge Instructions Additional Instructions: DSU Colonoscopy Post- Op Instructions Instructions for Everyone who is given Anesthesia: For your safety, please do the following for the next twenty-four (24) hours: *Do Not operate a motor vehicle (car, truck, motorcycle, etc.) *Do Not drink alcoholic beverages or use any recreational drugs for the first 24 hours or while taking pain medications. The medications in your body may have a reaction that can be dangerous. *Do Not make any important decisions or sign any important papers. Findings: polyps diverticula C. diff + -10-day course of oral vancomycin. C. difficile is extremely contagious. It needs to be cleaned with bleach in order to destroy it. Follow up: -April 17 2:30pm -Continue aspirin/ibuprofen (aleve/Motrin/Naprosyn,etc) 1. No lifting over 20 pounds or strenuous activity for the first 24 hours after your procedure. After 24 hours there are no restrictions on your activity but you may feel fatigued for a few days. 2. After you arrive home you may have a light meal and return to your normal diet as you can tolerate it without feeling sick to your stomach. 3. You may have a bloated, gaseous feeling in your belly (abdomen) after a colonoscopy. Passing gas and belching will help. Walking or lying down on your left side with your knees flexed may relieve the discomfort. Call the office at [phone] (Office) or [phone] (Hospital) right away if you notice any of the following: a.Vomiting of blood or ?coffee ground stools?. b.Rectal bleeding 1Tbsp, blood clots or continuous bleeding. c.Severe belly (abdominal) pain. d.A hard distended belly (abdomen) and an inability to pass gas. 4. Please don?t expect to have a normal BM (bowel movement) for 2-3 days after your procedure. 5. If there are questions regarding the findings of your procedure, please contact your doctor 6. If you are unable to contact your doctor with a problem, contact the hospital at [phone]. 7. Continue all your regular medications unless directed otherwise. I understand the above instructions and have no questions. Signature of Patient or Adult Escort Name of Responsible Adult Escort Signature of Nurse Date/Time Activity:: see above Diet:: see above Discharge Orders Discharge Orders: Discharge Order (Routine); Ordered 04/07/22 Ordered By: Mary Anne Hernandez DS: Diagnosis Discharge Diagnosis (1) Colitis due to Clostridium difficile: Status: Acute (2) Adenomatous colon polyp: Status: Acute (3) Diverticula of colon: Status: Acute
[2022-04-08] MEDS: Vancomycin 125 MG CAP PO (14:44)
== END 2022-04-08 15:08 | disposition home or self-care (01) ==
PROVIDERS: PCP Nurse Practitioner Family; Visit Provider Surgery
PROC: 0DJD8ZZ Inspection of Lower Intestinal Tract, Via Natural or Artificial Opening Endoscopic (ICD-10-PCS; CPT 45378; principal; 2022-04-08 11:15)
DX: K52.9 Noninfective gastroenteritis and colitis, unspecified (principal); K63.5 Polyp of colon; K57.30 Diverticulosis of large intestine without perforation or abscess without bleeding; R63.4 Abnormal weight loss; Z80.0 Family history of malignant neoplasm of digestive organs; G47.33 Obstructive sleep apnea (adult) (pediatric); F17.210 Nicotine dependence, cigarettes, uncomplicated; I10 Essential (primary) hypertension; I25.2 Old myocardial infarction; K63.89 Other specified diseases of intestine; K62.89 Other specified diseases of anus and rectum
CPT/HCPCS: 45385; 45381; 45380; 87493; 88305; 74174; J3490

== ENCOUNTER → 2022-04-17 14:46 | Outpatient (BNVA) | payer MEDICARE, OTHER, SELFPAY | PROVIDERS: PCP Nurse Practitioner Family; Referring Provider Nurse Practitioner Family; Visit Provider Surgery | DX: K63.89 Other specified diseases of intestine (principal) | CPT/HCPCS: 99213 ==

== ENCOUNTER 2022-07-10 02:31 | Outpatient (CLI) | payer MEDICARE, OTHER, SELFPAY ==
[2022-07-10 13:18] LABS: CREATININE 1.2 mg/dL (0.70-1.30); Potassium 3.8 mmol/L (3.5-5.1)
[2022-07-10 22:33] LABS: PSA, Screening 4.2 ng/mL (<=6.5)
== END 2022-07-10 02:32 | disposition home or self-care (01) ==
PROVIDERS: PCP Nurse Practitioner Family; Visit Provider Nurse Practitioner Family
DX: R35.0 Frequency of micturition (principal); I10 Essential (primary) hypertension; Z12.5 Encounter for screening for malignant neoplasm of prostate
CPT/HCPCS: 36415; 84153; 82565; 84132

== ENCOUNTER 2023-07-15 12:33 | Outpatient (CLI) | payer MEDICARE, SELFPAY ==
[2023-07-15 12:47] LABS: ALT 13 U/L (16-63); AST 16 U/L (15-37); Albumin 3.9 g/dL (3.4-5.0); Alkaline Phosphatase 75 U/L (46-116); Anion Gap 8.1 mmol/L (3-11); BUN 20 mg/dL (7-18); Bilirubin, Total 0.7 mg/dL (0.2-1.0); CO2 26.9 mmol/L (21.0-32.0); CREATININE 1.4 mg/dL (0.70-1.30); Calcium 9.3 mg/dL (8.5-10.1); Chloride 103 mmol/L (98-107); Estimated GFR 51.13 (mL/min/1.73m2); Glucose 106 mg/dL (74-106); Potassium 3.6 mmol/L (3.5-5.1); Sodium 138 mmol/L (136-145); Total Protein 7.4 g/dL (6.4-8.2)
== END 2023-07-15 12:34 | disposition home or self-care (01) ==
LOC: LOS 12:33
PROVIDERS: PCP Nurse Practitioner Family; Visit Provider Nurse Practitioner Family
DX: N28.9 Disorder of kidney and ureter, unspecified (principal)
CPT/HCPCS: 36415; 80053

== ENCOUNTER 2024-07-21 11:24 | Outpatient (CLI) | payer MEDICARE, SELFPAY ==
[2024-07-21 12:57] LABS: CREATININE 1.4 mg/dL (0.70-1.30); Calculated LDL 29 mg/dL (<100); Cholesterol 94 mg/dL (<200); Estimated GFR 50.81 (mL/min/1.73m2); HDL Cholesterol 54 mg/dL (40-60); Potassium 3.7 mmol/L (3.5-5.1); Triglyceride 58 mg/dL (<150)
[2024-07-22 09:41] LABS: PSA, Screening 4.5 ng/mL (<=6.5)
== END 2024-07-21 11:25 | disposition home or self-care (01) ==
LOC: LOS 11:24
PROVIDERS: PCP Nurse Practitioner Family; Visit Provider Nurse Practitioner Family
DX: Z13.6 Encounter for screening for cardiovascular disorders (principal); Z12.5 Encounter for screening for malignant neoplasm of prostate; I10 Essential (primary) hypertension; N28.9 Disorder of kidney and ureter, unspecified
CPT/HCPCS: 36415; 80061; 84153; 82565; 84132